=== PATIENT | male | born 1950 | race Two or more races ===

== ENCOUNTER 2017-11-20 14:25 | Emergency (ER) | payer MEDICARE, MEDICAID ==
[~2017-11-20] VITALS: Ht 167.6 cm; Wt 75.7 kg
[2017-11-20 15:21] VITALS: BP 156/84
== END 2017-11-20 15:38 | disposition home or self-care (01) ==
LOC: ER 14:33
DX: K42.9 Umbilical hernia without obstruction or gangrene (principal); I10 Essential (primary) hypertension; F17.200 Nicotine dependence, unspecified, uncomplicated; Z60.2 Problems related to living alone
CPT/HCPCS: A4606; Z7502; Z7610

== ENCOUNTER 2018-01-02 06:20 | Inpatient (IN) | payer MEDICAID, MEDICARE ==
[~2018-01-02] VITALS: Ht 167.6 cm; Wt 83.9 kg
--- NOTE | 2018-01-02 06:40 | NUR ---
TO BED 5 AA/OX4 COMPLAINING OF ABDOMINAL BLOATING, EPIGASTRIC PAIN, NAUSEA, AND DIARRHEA X 3/4 DAYS. AMBULATED TO BED WITH STABLE GAIT. NO S/S SOB. SKINS PINK, WARM, DRY. MOVES ALL EXTREMITIES WELL. PEDAL PULSES PRESENT. ACTIVE BOWEL SOUNDS NOTED. NAD. VSS. STABLE CONDITION. WILL CONTINUE TO MONITOR. AWAITING MD KRUSE, ORDERS.
--- NOTE | 2018-01-02 07:29 | NUR ---
ENDORSED TO ONCOMING SHIFT PAM ANGUIANO. PT STABLE CONDITION. VSS. NAD.
[2018-01-02] MEDS ORDERED: IV NS 0.9% 500 ML BAG IV ONE (07:30)
--- NOTE | 2018-01-02 07:30 | NUR ---
RECEIVED PATIENT IN STABLE CONDITION. WILL CONTINUE TO MONITOR.
[2018-01-02 07:38] LABS: BASOPHILS # (AUTO) 0.1 /CMM (0.0-0.2); HEMATOCRIT 44 % (39-51); HEMOGLOBIN 15.1 g/dL (13.5-17.5); LYMPHOCYTES # (AUTO) 1.5 /CMM (0.8-4.8); LYMPHOCYTES % (AUTO) 24.3 % (20.0-44.0); MEAN CORPUSCULAR HEMOGLOBIN 34 PG (26.0-33.0); MEAN CORPUSCULAR HGB CONC 35 g/dl (31.0-36.0); MEAN CORPUSCULAR VOLUME 99 fL (80-96); MONOCYTES # (AUTO) 0.4 /CMM (0.1-1.30); MONOCYTES % (AUTO) 7.2 % (2.0-12.0); NEUTROPHILS % (AUTO) 65.5 % (43.0-81.0); PLATELET COUNT (AUTO) 67 /CMM (150-450); RDW COEFFICIENT OF VARIATION 13.6 (11.5-15.0); RED BLOOD CELL COUNT(AUTO) 4.38 MIL/uL (4.5-6.0); WHITE BLOOD COUNT (AUTO) 6.1 K/uL (4.3-11.0)
[2018-01-02 07:38] LABS: APPEARANCE,URINE SL CLOUDY (CLEAR); BILIRUBIN,URINE 3+ (NEGATIVE); BLOOD, URINE 1+ Ery/uL (NEGATIVE); KETONES,URINE 1+ (NEGATIVE); LEUKOCYTE ESTERASE ,URINE TRACE (NEGATIVE); NITRITE, URINE POSITIVE (NEGATIVE); PH,URINE 5.5 (5.0-8.0); PROTEIN,URINE 2+ mg/dl (NEGATIVE); UGLUCOSE TRACE mg/dL (NEGATIVE)
[2018-01-02 07:45] LABS: CALCIUM, SERUM 8.3 mg/dL (8.5-10.1); CREATININE 0.9 mg/dL (0.6-1.3); POTASSIUM 2.9 mmol/L (3.5-5.1)
[2018-01-02 07:46] LABS: COLOR,URINE ORANGE (YELLOW)
[2018-01-02 07:51] LABS: ALBUMIN 2.8 g/dL (3.4-5.0); BILIRUBIN,DIRECT 2.1 mg/dL (0.0-0.2); BILIRUBIN,TOTAL 3.9 mg/dL (0.2-1.0)
[2018-01-02 07:54] LABS: BACTERIA,URINE Few /HPF (None Seen); MUCUS,URINE Few /LPF (None Seen); RBC,URINE 0-2 /HPF (0-2); SQUAMOUS EPITHELIAL CELL,UR Few /HPF (None Seen); WBC,URINE 0-2 /HPF (0-3)
[2018-01-02 07:56] LABS: INR 1.57 (0.87-1.13)
--- NOTE | 2018-01-02 07:56 | NUR ---
PATIENT TAKEN TO RADIOLOGY VIA STRETCHER.
--- NOTE | 2018-01-02 08:08 | NUR ---
PATIENT RETURNED FROM RADIOLOGY.
[2018-01-02] MEDS ORDERED: POTASSIUM CHLORIDE 20 MEQ TAB.PRT.SR PO ONE ×3 (08:23→15:00)
--- NOTE | 2018-01-02 08:43 | NUR ---
WOOD ZABALA PAGED.
--- NOTE | 2018-01-02 09:29 | NUR ---
REPORT GIVEN TO ARTEMIO OROZCO FOR DEMETRIUS UPON ADMISSION.
--- NOTE | 2018-01-02 09:50 | NUR ---
PATIENT TRANSPORTED TO [facility] VIA WHEELCHAIR FOR ADMISSION. RNARTEMIO TO PROVIDE DEMETRIUS.
[2018-01-02 10:00] VITALS: BP 143/86
--- NOTE | 2018-01-02 10:00 | NUR ---
RN MS NOTES RECEIVED PT FROM E.R. STAFF, AWAKE, ALERT AND ORIENTED, ASSISTED TO BED, MADE COMFORTABLE, NO COMPLAINT OF PAIN AT THIS TIME, NO COMPLAINT OF NAUSEA, RESPIRATIONS NORMAL, ROOM SET UP ORIENTATION PROVIDED, VERBALIZED UNDERSTANDING, CALL LIGHT PLACED WITHIN REACH, NEEDS ATTENDED, AWAITING ADMITTING ORDERS FROM MD.
[2018-01-02] MEDS ORDERED: ONDANSETRON HCL/PF 4 MG/2 ML VIAL IVP PRN (10:30)
[2018-01-02] MEDS ORDERED: MAG HYDROX/AL HYDROX/SIMETH 30 ML UDC PO PRN (10:30)
[2018-01-02] MEDS ORDERED: MAGNESIUM HYDROXIDE 30 ML UDC PO PRN (10:30)
[2018-01-02] MEDS ORDERED: ZOLPIDEM TARTRATE 5 MG TABLET PO PRN (10:30)
[2018-01-02] MEDS ORDERED: Z GUARD REMEDY 2 OZ OINT TP PRN (10:30)
[2018-01-02] MEDS: FUROSEMIDE 40 MG TABLET PO SCH (10:53)
[2018-01-02] MEDS: ACETAMINOPHEN 325 MG TABLET PO PRN ×2 (10:53→23:22)
[2018-01-02] MEDS: SPIRONOLACTONE 25 MG TABLET PO SCH (10:54)
[2018-01-02] MEDS ORDERED: POTASSIUM CL. PREMIX PERIPHER. 50 ML IV SCH (11:30)
[2018-01-02] MEDS ORDERED: LORAZEPAM 1 MG TABLET PO PRN (11:30)
[2018-01-02] MEDS: THIAMINE HCL 100 MG TABLET PO SCH (12:36)
[2018-01-02] MEDS: FOLIC ACID 1 MG TABLET PO SCH (12:36)
[2018-01-02 16:00] VITALS: BP 143/90
[2018-01-02] MEDS ORDERED: PEG 3350/NA SULF,BICARB,CL/KCL 4,000 ML BOTTLE PO ONE (16:30)
[2018-01-02] MEDS: ALBUMIN 25% 25 GM in PREMIX 1 EA IV SCH (17:52)
--- NOTE | 2018-01-02 18:33 | NUR ---
MS RN CLOSING NOTES PATIENT IN BED, RESTING AWAKE ALERT AND ORIENTED X 4. IN NO APPARENT DISTRESS. PATIENT SEEN BY GI DOCTOR AND SCHEDULED FOR COLONOSCOPY AND EGD FOR TOMORROW, PATIENT WILL BE NPO AFTER MIDNIGHT, CURRENTLY INFUSING ALBUMIN 100ML/HR. OFFERED EDUCATION TO PATIENT IN REGARDS TO PROCEDURE, CONSENT FORMS SIGNED. PATIENT IN STABLE CONDITION, WILL ENDORSE TO NIGHT NURSE FOR DEMETRIUS.
--- NOTE | 2018-01-02 19:30 | NUR ---
MS RN OPENING NOTES PT RECEIVED LYING IN BED AT LOWEST AND LOCKED POSITION WITH SIDE RAILS UP X2, NO S/S OF PAIN OR DISTRESS NOTED, BREATHING IS EVEN AND UNLABORED ON RA, IV IS PATENT AND INTACT WITH NO IVF RUNNING, A/O X4, PT IS AMBULATORY, SAFETY PRECAUTIONS IN PLACE, CALL LIGHT WITHIN REACH, WILL CONTINUE TO MONITOR AND ASSESS
[2018-01-02 20:00] VITALS: BP 129/79
[2018-01-03] MEDS: ALBUMIN 25% 25 GM in PREMIX 1 EA IV SCH (04:21)
--- NOTE | 2018-01-03 06:01 | NUR ---
MS RN CLOSING NOTES PT IS IN BED SLEEPING COMFORTABLY IN LOWEST AND LOCKED POSITION WITH SIDE RAILS UP X2, NO S/S OF PAIN OR DISTRESS NOTED, BREATHING IS EVEN AND UNLABORED, A/O X4, RIGHT AC 18G IS PATENT AND INTACT, RECEIVED ALBUMIN AT 5 AM, CONSENT AND CHECKLIST DONE, STOOL COLLECTED, CURRENTLY NPO, ALL NEEDS ATTENDED TO, SAFETY PRECAUTIONS IN PLACE, WILL ENDORSE TO DAY SHIFT FOR DEMETRIUS.
--- NOTE | 2018-01-03 06:22 | NUR ---
PT IS A/O X 4, VERBALLY RESPONSIVE,PT WAS ENCOURAGED TO DRINK AND ABLE TO DRINK ALMOST HALF OF GOLYTELY. PT WAS ON NPO STARTING 12 MIDNIGHT, PT VERBALIZED UNDERSTANDING. PT'S STOOL IS LIQUID ALREADY BUT STILL BROWN IN COLOR, NOTED WITH MOD PARTICLES. DR. AVERY FIELDS INFORMED, WITH NNO AT THIS TIME.
[2018-01-03 06:29] LABS: OCCULT BLOOD STOOL NEGATIVE (NEGATIVE)
--- NOTE | 2018-01-03 07:00 | NUR ---
MSRN OPENING NOTES. PT RECEIVED A&0X3, TOLERATING ROOM AIR WITHOUT DISTRESS AND DENIES PAIN AT THIS TIME. PT NPO AND REMINDED NOT TO DRINK OR EAT R/T PROCEDURE. PT WITH IVC INTACT AND SALINE FLUSH PATENT. PT COMPLETED APPROX HALF BOWEL PREP AND REPORTEDLY PASSING BROWN LIQUID STOOL, ENDORSED MD FIELDS AWARE AND WILL PROCEED REGARDLESS. PT BRIEFED ON TODAY'S POC AND IS WITHOUT CONCERN OR COMPLAINT AT THIS TIME.
[2018-01-03 07:05] LABS: BASOPHILS % (AUTO) 0.2 % (0.0-2.0); EOSINOPHILS % (AUTO) 3.1 % (0.0-6.0); HEMATOCRIT 38 % (39-51); HEMOGLOBIN 12.6 g/dL (13.5-17.5); LYMPHOCYTES # (AUTO) 1.4 /CMM (0.8-4.8); LYMPHOCYTES % (AUTO) 30.4 % (20.0-44.0); MEAN CORPUSCULAR HEMOGLOBIN 35 PG (26.0-33.0); MEAN CORPUSCULAR HGB CONC 33 g/dl (31.0-36.0); MEAN CORPUSCULAR VOLUME 103 fL (80-96); MONOCYTES # (AUTO) 0.5 /CMM (0.1-1.30); MONOCYTES % (AUTO) 10.8 % (2.0-12.0); NEUTROPHILS # (AUTO) 2.5 /CMM (1.8-8.9); NEUTROPHILS % (AUTO) 55.5 % (43.0-81.0); PLATELET COUNT (AUTO) 55 /CMM (150-450); RDW COEFFICIENT OF VARIATION 14.1 (11.5-15.0); RED BLOOD CELL COUNT(AUTO) 3.67 MIL/uL (4.5-6.0); WHITE BLOOD COUNT (AUTO) 4.5 K/uL (4.3-11.0)
[2018-01-03 07:38] LABS: ALBUMIN 2.7 g/dL (3.4-5.0); BILIRUBIN,TOTAL 2.5 mg/dL (0.2-1.0); CALCIUM, SERUM 8.4 mg/dL (8.5-10.1); CREATININE 0.7 mg/dL (0.6-1.3); MAGNESIUM 1.7 mg/dL (1.8-2.4); PHOSPHORUS 2.3 mg/dL (2.5-4.9); POTASSIUM 3.5 mmol/L (3.5-5.1); TOTAL PROTEIN, SERUM 5.9 g/dL (6.4-8.2)
[2018-01-03 08:41] LABS: LYMPHOCYTES % (MANUAL) 35 % (16-48); MONOCYTES % (MANUAL) 6 % (0-11.0); NEUTROPHILS % (MANUAL) 59 (42-76)
[2018-01-03] MEDS ORDERED: POTASSIUM PHOSPHATE MM 5 MMOL in IV D5W 100 ML IV ONE (11:00)
[2018-01-03] MEDS ORDERED: PHYTONADIONE INJ 10 MG/1 ML AMPUL SQ ONE (13:30)
[2018-01-03] MEDS ORDERED: PROPOFOL 20 ML IV ONE (13:51)
--- NOTE | 2018-01-03 14:00 | NUR ---
MSRN NOTES. PT REFUSING TO BE CONNECTED TO IV FOR MAG REPLACEMENT FREQUENTLY USING THE TOILET.
--- NOTE | 2018-01-03 14:03 | NUR ---
GISELE met with pt' daughter Pinky and disease case manager Rola Swanson regarding referrals for alcohol treatment programs. SW gave pt's daughter Pinky alcohol referral to [facility] in [place] , [facility] and Outpatient treatment program [facility] .
[2018-01-03] MEDS: CARVEDILOL 3.125 MG TABLET PO SCH ×2 (14:30→20:02)
[2018-01-03] MEDS: SPIRONOLACTONE 25 MG TABLET PO SCH (14:40)
[2018-01-03] MEDS: FOLIC ACID 1 MG TABLET PO SCH (14:42)
[2018-01-03] MEDS: THIAMINE HCL 100 MG TABLET PO SCH (14:43)
[2018-01-03] MEDS: FUROSEMIDE 40 MG TABLET PO SCH (14:43)
[2018-01-03] MEDS: Magnesium 1GM/D5W 100ML PREMIX 100 ML IV SCH ×2 (16:09→19:50)
[2018-01-03 16:10] VITALS: BP 119/68
--- NOTE | 2018-01-03 18:44 | NUR ---
MSRN CLOSING NOTES. PT REMAINS A&0X3, TOLERATING ROOM AIR WITHOUT DISTRESS AND DENIES PAIN AT THIS TIME. PT WITH IVC INTACT AND OPERATIONAL AT THIS TIME WITH 1 MAG OUTSTANDING, WILL ENDORSE TO NIGHT NURSE TO COMPLETE. PT WITHOUT S/S OF WITHDRAWAL, NO ME BLEEDS NOTED AT THIS TIME. ALL DAY NURSE DUTIES ATTENDED TO AND PT IS WITHOUT CONCERN OR COMPLAINT AT THIS TIME. WILL ENDORSE TO NIGHT NURSE AT BEDSIDE FOR DEMETRIUS.
--- NOTE | 2018-01-03 19:30 | NUR ---
MS RN OPENING NOTES PT RECEIVED SLEEPING IN BED AT LOWEST AND LOCKED POSITION WITH SIDE RAILS UP X2, NO S/S OF PAIN OR DISTRESS NOTED, BREATHING IS EVEN AND UNLABORED ON RA, IV IS PATENT AND INTACT WITH MAG RUNNING, A/O X4, PT IS AMBULATORY, SAFETY PRECAUTIONS IN PLACE, CALL LIGHT WITHIN REACH, WILL CONTINUE TO MONITOR AND ASSESS
[2018-01-03 20:00] VITALS: BP 130/79
[2018-01-03 20:11] VITALS: BP 130/79
[2018-01-04] VITALS: BP 117/70
--- NOTE | 2018-01-04 06:00 | NUR ---
MS RN CLOSING NOTES PT SLEEPING IN BED AT LOWEST AND LOCKED POSITION WITH SIDE RAILS UP X2, NO S/S OF PAIN OR DISTRESS NOTED, BREATHING IS EVEN AND UNLABORED ON RA, IV IS PATENT AND INTACT, A/O X4, PT IS AMBULATORY, SAFETY PRECAUTIONS IN PLACE, CALL LIGHT WITHIN REACH, ALL NEEDS ATTENDED TO, WILL ENDORSE TO DAY SHIFT FOR DEMETRIUS
[2018-01-04 07:20] LABS: CALCIUM, SERUM 7.9 mg/dL (8.5-10.1); CREATININE 0.8 mg/dL (0.6-1.3); MAGNESIUM 1.7 mg/dL (1.8-2.4); POTASSIUM 3.1 mmol/L (3.5-5.1)
[2018-01-04 08:00] VITALS: BP 129/73
--- NOTE | 2018-01-04 08:00 | NUR ---
m/s data coder operator: initial assessment received pt in bed awake, a/ox4; ambulatory. no c/o pain and discomfort. pt wants to go home today. instructed to call for assistance. will continue to monitor.
[2018-01-04] MEDS: SPIRONOLACTONE 25 MG TABLET PO SCH (08:29)
[2018-01-04] MEDS: FUROSEMIDE 40 MG TABLET PO SCH (08:29)
[2018-01-04] MEDS: THIAMINE HCL 100 MG TABLET PO SCH (08:29)
[2018-01-04 08:30] VITALS: BP 129/73
[2018-01-04] MEDS: FOLIC ACID 1 MG TABLET PO SCH (08:30)
[2018-01-04] MEDS: CARVEDILOL 3.125 MG TABLET PO SCH (08:30)
[2018-01-04] MEDS ORDERED: POTASSIUM CHLORIDE 20 MEQ TAB.PRT.SR PO ONE (08:30)
[2018-01-04] MEDS ORDERED: IBUPROFEN 400 MG TABLET PO ONE (08:45)
[2018-01-04] MEDS: Magnesium 1GM/D5W 100ML PREMIX 100 ML IV SCH ×2 (08:57→10:22)
--- NOTE | 2018-01-04 09:30 | NUR ---
m/s roll coverer: md visit seen and examined by dr. black and plan to d'c pt home today. pt aware.
--- NOTE | 2018-01-04 10:30 | NUR ---
m/s tower cleaner: notes daughter wants to talk to the doctor before he goes home and prefers pt to go to rehab. case management and health and social care teacher notified and made aware. cn notified dr. black re: request.
--- NOTE | 2018-01-04 11:06 | NUR ---
GISELE met with pt. and his daughter Pinky bedside with renal case manager Rola Swanson and ROBB Melendez to discuss possible inpatient alcohol treatment program. Pt. is Yi speaking. ROBB Melendez assisted with translation. Pt. is willing to go to inpatient alcohol treatment program. GISELE informed pt. and his daughter Pinky that SW will send referral to [facility] and follow up. GISELE faxed clinicals /referral to Jose Peguero at .
--- NOTE | 2018-01-04 11:35 | NUR ---
m/s atmospheric drier tender: notes received order from dr. black to discharge pt home with Discharge instructions <Discharge home., Follow up with Primary Care Provider (PCP) in one week., Continue folate and thiamine supplements for 30 days., Continue Spironolactone and Lasix for 30 days., Continue Coreg for 30 days., Continue Pantoprozole for 30 days., Follow up with PCP for reassessment after 30 days and refills. daughter to take his home and met with social staff worker and case management. pt does not qualify for snf per cm and daughter in agreement.
--- NOTE | 2018-01-04 12:00 | NUR ---
m/s satellite dish installer: d'c instructions discharged instructions given with prescriptions to pt and daughter and verbalized understanding. h/l removed with tip intact with no bleeding, no redness, and no swelling noted. daughter wants him to eat first and leave. lunch served.
--- NOTE | 2018-01-04 12:30 | NUR ---
m/s river rat: discharged discharged home in stable condition with all d'c papers and belongings.
== END 2018-01-04 12:30 | disposition home or self-care (01) | DRG 223 ==
LOC: ER 06:20 → MED 08:40
PROVIDERS: ADMIT Internal Medicine; ATTEND Internal Medicine
PROC: 0W9G3ZZ Drainage of Peritoneal Cavity, Percutaneous Approach (ICD-10-PCS; 2018-01-02)
PROC: 0DBH8ZZ Excision of Cecum, Via Natural or Artificial Opening Endoscopic (ICD-10-PCS; principal; 2018-01-03 12:30)
PROC: 0DBC8ZZ Excision of Ileocecal Valve, Via Natural or Artificial Opening Endoscopic (ICD-10-PCS; principal; 2018-01-03 12:30)
PROC: 0DBK8ZZ Excision of Ascending Colon, Via Natural or Artificial Opening Endoscopic (ICD-10-PCS; principal; 2018-01-03 12:30)
PROC: 0DBM8ZZ Excision of Descending Colon, Via Natural or Artificial Opening Endoscopic (ICD-10-PCS; principal; 2018-01-03 12:30)
PROC: 0DBN8ZZ Excision of Sigmoid Colon, Via Natural or Artificial Opening Endoscopic (ICD-10-PCS; principal; 2018-01-03 12:30)
DX: K65.2 Spontaneous bacterial peritonitis (principal); D69.6 Thrombocytopenia, unspecified; D68.9 Coagulation defect, unspecified; E83.42 Hypomagnesemia; E88.09 Other disorders of plasma-protein metabolism, not elsewhere classified; K76.6 Portal hypertension; K70.11 Alcoholic hepatitis with ascites; K74.60 Unspecified cirrhosis of liver; E87.6 Hypokalemia; D12.4 Benign neoplasm of descending colon; D12.0 Benign neoplasm of cecum; K64.8 Other hemorrhoids; Z87.891 Personal history of nicotine dependence; D12.5 Benign neoplasm of sigmoid colon; F10.10 Alcohol abuse, uncomplicated; K70.10 Alcoholic hepatitis without ascites; D53.9 Nutritional anemia, unspecified; K31.89 Other diseases of stomach and duodenum; K25.9 Gastric ulcer, unspecified as acute or chronic, without hemorrhage or perforation; K29.70 Gastritis, unspecified, without bleeding; K29.80 Duodenitis without bleeding; I10 Essential (primary) hypertension
CPT/HCPCS: 36415; 71045-TC; 76942-TC; 80048-TC; 80053-TC; 80061-TC; 80076-TC; 81000-TC; 82272-TC; 83615-TC; 83690-TC; 83735-TC; 84100-TC; 84484-TC; 85025-TC; 85730-TC; 87070-TC; 87081-TC; 87086-TC; 88305-TC; 88312-TC; 89051-TC; A4216; A4606; J2704; J3430; J3475; J3480; J3490; J7030; J7040; J7050; J7060; P9047; Z7610

== ENCOUNTER 2018-01-15 15:44 | Outpatient (CLI) | payer MEDICARE, MEDICAID | END 2018-01-15 23:59 | disposition home or self-care (01) | LOC: MSC 15:44 | PROVIDERS: ATTEND Internal Medicine | DX: K70.30 Alcoholic cirrhosis of liver without ascites (principal); F10.10 Alcohol abuse, uncomplicated; K76.6 Portal hypertension; I10 Essential (primary) hypertension; F17.210 Nicotine dependence, cigarettes, uncomplicated; E80.6 Other disorders of bilirubin metabolism; D69.6 Thrombocytopenia, unspecified; D63.8 Anemia in other chronic diseases classified elsewhere ==

== ENCOUNTER 2018-04-04 13:01 | Outpatient (CLI) | payer MEDICAID, MEDICARE ==
[~2018-04-04 13:01] MED LIST: CARV3.122 PO; FOLI1TAB16 PO; FURO40TA5 PO; PANT40TA2 PO; PANT40TA4 PO; SPIR100T5 PO; THIA100T13 PO; THIA100T70 PO
== END 2018-04-04 23:55 | disposition home or self-care (01) ==
LOC: MSC 13:01
PROVIDERS: ATTEND Internal Medicine
DX: K70.30 Alcoholic cirrhosis of liver without ascites (principal); F10.21 Alcohol dependence, in remission; F17.200 Nicotine dependence, unspecified, uncomplicated; K76.6 Portal hypertension; I10 Essential (primary) hypertension; E80.6 Other disorders of bilirubin metabolism; D69.6 Thrombocytopenia, unspecified; D64.89 Other specified anemias

== ENCOUNTER 2018-05-05 14:15 | Emergency (ER) | payer MEDICARE, MEDICAID ==
[~2018-05-05] VITALS: Ht 172.7 cm; Wt 86.2 kg
--- NOTE | 2018-05-05 14:30 | NUR ---
PT BIB DAUGHTER C/O Fluid Build up "Has cirrhosis been having fluid build up x3wks" PT IS AAOX3, NOT IN RESPIRATORY DISTRESS, V/S STABLE, KEPT RESTED AND COMFORTABLE, AWAITING ER MD FOR EVAL.
[2018-05-05 15:21] LABS: BASOPHILS # (AUTO) 0.1 /CMM (0.0-0.2); BASOPHILS % (AUTO) 1.5 % (0.0-2.0); EOSINOPHILS % (AUTO) 2.2 % (0.0-6.0); HEMATOCRIT 33 % (39-51); HEMOGLOBIN 11.2 g/dL (13.5-17.5); LYMPHOCYTES # (AUTO) 1.4 /CMM (0.8-4.8); LYMPHOCYTES % (AUTO) 26.7 % (20.0-44.0); MEAN CORPUSCULAR HGB CONC 34 g/dl (31.0-36.0); MEAN CORPUSCULAR VOLUME 98 fL (80-96); MONOCYTES # (AUTO) 0.8 /CMM (0.1-1.30); MONOCYTES % (AUTO) 15.5 % (2.0-12.0); NEUTROPHILS # (AUTO) 2.7 /CMM (1.8-8.9); NEUTROPHILS % (AUTO) 54.1 % (43.0-81.0); PLATELET COUNT (AUTO) 117 /CMM (150-450); RED BLOOD CELL COUNT(AUTO) 3.32 MIL/uL (4.5-6.0); WHITE BLOOD COUNT (AUTO) 5.1 K/uL (4.3-11.0)
[2018-05-05 15:31] LABS: CREATININE 1.3 mg/dL (0.6-1.3); POTASSIUM 3.9 mmol/L (3.5-5.1)
[2018-05-05 15:37] LABS: ALBUMIN 2.1 g/dL (3.4-5.0); BILIRUBIN,DIRECT 0.8 mg/dL (0.0-0.2); TOTAL PROTEIN, SERUM 6.6 g/dL (6.4-8.2)
--- NOTE | 2018-05-05 15:52 | NUR ---
Patient discharged to home in stable condition. Written and verbal after care instructions given. Patient verbalizes understanding of instruction.
[2018-05-05 15:53] VITALS: BP 115/69
[2018-05-05 17:03] LABS: BAND % (MANUAL) 1 % (0.0-5.0); BASOPHILS % (MANUAL) 0 % (0.0-2.0); EOSINOPHILS % (MANUAL) 1 % (0-4); LYMPHOCYTES % (MANUAL) 28 % (16-48); MONOCYTES % (MANUAL) 13 % (0-11.0); NEUTROPHILS % (MANUAL) 57 (42-76)
== END 2018-05-05 15:54 | disposition home or self-care (01) ==
LOC: ER 14:17
DX: K70.31 Alcoholic cirrhosis of liver with ascites (principal); F17.200 Nicotine dependence, unspecified, uncomplicated; Z60.2 Problems related to living alone
CPT/HCPCS: 36415; 80048-TC; 80076-TC; 85025-TC; 85730-TC

== ENCOUNTER 2018-05-06 14:08 | Outpatient (CLI) | payer MEDICARE, MEDICAID ==
[2018-05-06 14:17] VITALS: BP 106/68
[2018-05-06] MEDS ORDERED: ALBUMIN 25% 12.5 GM/50 ML BOTTLE IV ONE (14:30)
== END 2018-05-06 23:59 | disposition home or self-care (01) ==
LOC: MSC 14:08
PROVIDERS: ATTEND Nurse Practitioner Acute Care
DX: K70.31 Alcoholic cirrhosis of liver with ascites (principal); F10.10 Alcohol abuse, uncomplicated; K70.11 Alcoholic hepatitis with ascites; I10 Essential (primary) hypertension; D53.9 Nutritional anemia, unspecified
CPT/HCPCS: 76942-TC

== ENCOUNTER 2018-05-06 14:57 | Outpatient (CLI) | payer MEDICARE, MEDICAID | END 2018-05-06 23:59 | disposition home or self-care (01) | LOC: US 14:57 | PROVIDERS: ATTEND Nurse Practitioner Acute Care | DX: R18.8 Other ascites (principal) | CPT/HCPCS: 76942-TC ==

== ENCOUNTER 2018-05-23 16:22 | Outpatient (CLI) | payer MEDICARE, MEDICAID ==
[2018-05-23 16:29] VITALS: BP 131/78
[2018-05-23] MEDS ORDERED: HYDR-4384 PO (17:37)
== END 2018-05-23 23:59 | disposition home or self-care (01) ==
LOC: MSC 16:22
PROVIDERS: ATTEND Nurse Practitioner Acute Care
DX: K70.31 Alcoholic cirrhosis of liver with ascites (principal); K70.11 Alcoholic hepatitis with ascites; I10 Essential (primary) hypertension; F17.210 Nicotine dependence, cigarettes, uncomplicated; D53.9 Nutritional anemia, unspecified

== ENCOUNTER 2018-05-23 17:11 | Emergency (ER) | payer MEDICARE, MEDICAID ==
[~2018-05-23] VITALS: Ht 165.1 cm; Wt 81.6 kg
--- NOTE | 2018-05-23 17:21 | NUR ---
Pt presented to the ER with a c/o ABD distension. Pt had a paracentisis 3 wks ago. Pt appears jaundiced. Abd is extremely distended and tight. Pt ambulated to ER 13 with a slow steady gait. Pt was placed on the monitor and continuous pulse ox.
--- NOTE | 2018-05-23 17:25 | NUR ---
Consent for Paracentesis is in the chart.
[2018-05-23] MEDS ORDERED: HYDR-4384 PO (17:37)
--- NOTE | 2018-05-23 17:40 | NUR ---
US and paracentisis set up is at the bedside.
--- NOTE | 2018-05-23 18:07 | NUR ---
Dr. Fofana is at the bedside for procedure.
[2018-05-23] MEDS ORDERED: LIDOCAINE HCL/PF 1% 30 ML SDV ONE (18:11)
--- NOTE | 2018-05-23 18:38 | NUR ---
5L of fluid removed via paracentesis. is aware.
--- NOTE | 2018-05-23 19:07 | NUR ---
EKG WAS NOT DONE. CANCELLED ORDER
--- NOTE | 2018-05-23 19:10 | NUR ---
Dr. Fofana is at the bedside removing paracentesis access.
[2018-05-23 19:22] VITALS: BP 112/81
--- NOTE | 2018-05-23 19:22 | NUR ---
Patient discharged to home in stable condition. Written and verbal after care instructions given. Patient verbalizes understanding of instruction. Pt's daughter is driving pt home. VSS. Pt ambulated with a slow steady gait to the bathroom. EMT is taking pt to the car via WC.
== END 2018-05-23 19:23 | disposition home or self-care (01) ==
LOC: ER 17:16
DX: K70.31 Alcoholic cirrhosis of liver with ascites (principal); F10.10 Alcohol abuse, uncomplicated; F17.200 Nicotine dependence, unspecified, uncomplicated; Y90.9 Presence of alcohol in blood, level not specified; Z60.2 Problems related to living alone
CPT/HCPCS: 49083; 99283; A4606; J3490

== ENCOUNTER 2018-08-02 22:08 | Emergency (ER) | payer MEDICARE, MEDICAID ==
[~2018-08-02] VITALS: Ht 162.6 cm; Wt 83.9 kg
[~2018-08-02 22:08] MED LIST changes: +HYDR-4384 PO; -PANT40TA2 PO; -THIA100T13 PO
--- NOTE | 2018-08-02 22:30 | NUR ---
PT BIBDAUGHTER COMPLAINING OF "ASCITES." PT HAS HX OF GOING TO DIFFERENT ER TO GET A PARACENTESIS, USUALLY EVERY 2 WEEKS. LAST TIME PT HAS PARACENTESIS WAS 3 WEEKS AGO. PT AXO4. RESPIRATIONS EVEN AND UNLABORED. DISTENDED ABDOMEN NOTED. PT PUT ON THE BUSINESS INVESTOR AND PULSE OX. PENDING EVAL FROM ER .
--- NOTE | 2018-08-02 22:53 | NUR ---
FARTUN PAIZ AT BEDSIDE.
[2018-08-02 23:15] LABS: BASOPHILS % (AUTO) 0.6 % (0.0-2.0); EOSINOPHILS % (AUTO) 1.6 % (0.0-6.0); HEMATOCRIT 29 % (39-51); HEMOGLOBIN 10.1 g/dL (13.5-17.5); LYMPHOCYTES # (AUTO) 0.6 /CMM (0.8-4.8); LYMPHOCYTES % (AUTO) 11.8 % (20.0-44.0); MEAN CORPUSCULAR HGB CONC 35 g/dl (31.0-36.0); MEAN CORPUSCULAR VOLUME 98 fL (80-96); MONOCYTES # (AUTO) 0.6 /CMM (0.1-1.30); NEUTROPHILS # (AUTO) 3.6 /CMM (1.8-8.9); PLATELET COUNT (AUTO) 133 /CMM (150-450); RED BLOOD CELL COUNT(AUTO) 2.99 MIL/uL (4.5-6.0); WHITE BLOOD COUNT (AUTO) 4.9 K/uL (4.3-11.0)
[2018-08-02 23:33] LABS: CALCIUM, SERUM 8.4 mg/dL (8.5-10.1); CREATININE 2.2 mg/dL (0.6-1.3); POTASSIUM 3.4 mmol/L (3.5-5.1)
--- NOTE | 2018-08-03 00:05 | NUR ---
Patient discharged to home in stable condition. Written and verbal after care instructions given. Patient verbalizes understanding of instruction. IV removed. Catheter intact and site benign. Pressure and 4x4 applied to site. No bleeding noted.
[2018-08-03 00:06] VITALS: BP 133/82
== END 2018-08-03 00:07 | disposition home or self-care (01) ==
LOC: ER 22:17
DX: R18.8 Other ascites (principal); N28.9 Disorder of kidney and ureter, unspecified; D69.6 Thrombocytopenia, unspecified; F10.10 Alcohol abuse, uncomplicated; F17.200 Nicotine dependence, unspecified, uncomplicated; Y90.9 Presence of alcohol in blood, level not specified
CPT/HCPCS: 36415; 80048-TC; 85025-TC; 85730-TC